=== PATIENT | male | born 1935 | race Caucasian/White ===

== ENCOUNTER 2018-12-24 06:02 | Day surgery (SDC) | payer OTHER ==
[2018-12-18 16:01] VITALS: BMI 18.2
[2018-12-24] MEDS ORDERED: ONDANSETRON 4 MG/2 ML VIAL IVPUSH PRN ×2 (07:03→08:30)
[2018-12-24] MEDS ORDERED: POVIDONE-IODINE 5% OPHTHALMIC PREP 30 ML SOLUTION ONE (07:07)
[2018-12-24] MEDS ORDERED: ERYTHROMYCIN 0.5% OPHTHALMIC OINTMENT 3.5 GM TUBE ONE (07:07)
[2018-12-24] MEDS ORDERED: TETRACAINE 0.5% OPHTH SOLN 2 ML BOTTLE ONE (07:07)
[2018-12-24] MEDS ORDERED: BUPIVACAINE HCL/PF 0.5% (5MG/ML) 10 ML VIAL ONE (07:08)
[2018-12-24] MEDS ORDERED: LIDOCAINE 1%/EPI 1:100000 (20 ML MULTI DOSE VIAL) ONE (07:08)
[2018-12-24] MEDS ORDERED: LACTATED RINGERS SOLUTION 1,000 ML IV SCH ×2 (07:15→08:30)
[2018-12-24] MEDS ORDERED: DEXAMETHASONE SOD PHOSPHATE 4 MG/1 ML VIAL ONE (07:18)
[2018-12-24] MEDS ORDERED: MIDAZOLAM HCL 2 MG/2 ML SINGLE DOSE VIAL ONE (07:18)
[2018-12-24] MEDS ORDERED: PROPOFOL 20 ML ONE (07:18)
[2018-12-24] MEDS ORDERED: ceFAZolin SODIUM 1 GM VIAL ONE (07:18)
[2018-12-24] MEDS ORDERED: oxyCODONE HCL 5 MG TABLET PO PRN (08:30)
[2018-12-24 10:37] VITALS: BP 120/60; PULSE 55; TEMP 97.8
--- NOTE | 2018-12-24 11:15 | OP ---
DATE OF OPERATION: 12/24/2018 PREOPERATIVE DIAGNOSIS: Cicatricial ectropion with distchiasis and trichiasis, left lower lid. POSTOPERATIVE DIAGNOSIS: Cicatricial ectropion with distchiasis and trichiasis, left lower lid. PROCEDURE: 1. Lateral tarsus strip, left lower lid. 2. Tarsotomy with marginal rotation, left lower lid. SURGEON: Desmond Corona M.D. ANESTHESIA: Local with sedation. COMPLICATIONS: None. ESTIMATED BLOOD LOSS: 2 to 3 mL OPERATIVE REPORT: Patient was brought to the operating room and placed on the operating room table. Vital signs were monitored by Anesthesia. Tetracaine was placed in both eyes. Lateral canthal line was marked in the left lateral canthus. Timeout was performed. Intravenous sedation was administered, after which a 50:50 mixture of 2% Xylocaine 1:100,000 epinephrine and 0.5% Marcaine was injected in the lateral canthus down to periosteum lateral third in the upper and lower lid, as well as subconjunctivally across the entire lid for a total of 2 to 3 mL. Massage was applied for hemostasis. The patient was prepped and draped in the usual sterile fashion exposing both eyes. The right eye was manually closed. The left canthus in the left eye was incised with the 15 blade through skin and subcutaneous tissue down to periosteum. [place] needle was used for hemostasis and to release the inferior michael of the lateral tendon. A prior Prolene suture that was identified was removed. The lid was everted and 2 mm measured with the caliper across the eyelid from the punctum to where the new tarsal strip would be created was marked with the marking pen. The lid was overlapped from the orbital rim, marked and divided into an anterior and posterior lamella. Anterior lamella was excised. The posterior lamella was denuded of epithelium posteriorly and superiorly. Lateral tarsal strip was created so the lateral end of the eyelid would be known. This patient had bilaterally. Again, the lid was everted and 2 mm below the margin as marked with the caliper an incision was made through the tarsus and the facial plate was dissected off of orbicularis and 2 vertical incisions were made at either end of this tarsotomy incision to allow this marginal tarsus to rotate into a new marginal position. The inferior tarsus was then grabbed with a mattress 5-0 Vicryl suture and 4 of these sutures were placed across the eyelids in a double-arm fashion extending just above the lash line anteriorly and when these were tied, this rotated the tarsotomy fragment anteriorly into a horizontal plane creating a new margin. These were tied. The lateral tarsal strip was then secured to the orbital rim at its appropriate position with double-arm 5-0 Prolene reinforced with two 6-0 Vicryl lasso sutures. Lateral canthal was performed with a 5-0 chromic suture buried to the mclaughlin line in the upper and lower lid. The tarsal strip was attached to the orbital rim with the Prolene. The excess tarsal strip was overlapped over the Prolene, tied with 5-0 chromic. Subcuticularly it was tied with 5-0 chromic and the skin was closed with interrupted 6-0 plain suture after antibiotic irrigation. Erythromycin ointment was placed in the eye and the sutures in the lateral canthus and the patient was taken to the recovery room in stable condition. It should be noted that each of the double-arm 5-0 Vicryls creating the tarsal rotation were tied externally and that resulted in tarsal rotation creating a new margin. DESMOND CORONA M.D. [id number]
== END 2018-12-24 10:20 | disposition home or self-care (01) ==
LOC: FASU 06:02
PROVIDERS: ATTEND Ophthalmology
PROC: 08BR0ZZ Excision of Left Lower Eyelid, Open Approach (ICD-10-PCS; principal; 2018-12-24 08:05)
DX: H02.115 Cicatricial ectropion of left lower eyelid (principal); H02.055 Trichiasis without entropion left lower eyelid
CPT/HCPCS: 94760